=== PATIENT | male | born 1990 | race Caucasian/White ===

== ENCOUNTER 2016-11-02 19:50 | Inpatient (IN) | payer BC ==
--- NOTE | 2016-11-02 20:08 | Emergency Department Record ---
History of Present Illness - General Chief Complaint: Abdominal Pain Stated Complaint: VOMITING Time Seen by Provider: 11/02/16 20:06 Source: Patient Mode of Arrival: Ambulatory Limitations: No limitations - History of Present Illness Initial Comments: The patient is here due to a 7 day hx of intermittent abdominal pain. The pain is crampy and located in the lower abdomen. The pain is intermittent has has been present every other day since starting. When he does develop the pain there is a lot of nausea and vomiting but no diarrhea. There is no hx of similar issues and no hx of any abdominal surgeries. MD Complaint: Abdominal pain Onset/Timin -: Days(s) Location: LLQ, RLQ Severity: Moderate Quality: Aching Consistency: Intermittent Associated Symptoms: Nausea, Vomiting - Related Data Home Medications Medication Instructions Recorded Confirmed Last Taken No Home Med [NO HOME MEDS] 11/02/16 11/02/16 Unknown Allergies Allergy/AdvReac Type Severity Reaction Status Date / Time acetaminophen [From Vicodin] AdvReac VOMITING Verified 11/02/16 20:03 hydrocodone [From Vicodin] AdvReac VOMITING Verified 11/02/16 20:03 Review of Systems Constitutional: Denies: Chills, Fever Eyes: Denies: Eye discharge ENT: Denies: Congestion Respiratory: Denies: Cough, Dyspnea Past Medical History - SOCIAL HISTORY Smoking Status: Never smoker Alcohol Use: Rare Drug Use: Occasional Drug Use Detail:: Marijuana - RESPIRATORY Hx Respiratory Disorders: No - CARDIOVASCULAR Hx Cardio Disorders: No - NEURO Hx Neuro Disorders: No - GI Hx GI Disorders: No - Hx Genitourinary Disorders: No - ENDOCRINE Hx Endocrine Disorders: No - MUSCULOSKELETAL Hx Musculoskeletal Disorders: No - PSYCH Hx Psych Problems: No - HEMATOLOGY/ONCOLOGY Hx Hematology/Oncology Disorders: No Family Medical History Any Significant Family History?: No Physical Exam - General General Appearance: Alert, Oriented x3, Cooperative, No acute distress - Head Head exam: Atraumatic, Normocephalic, Normal inspection - Eye Eye exam: Normal appearance, PERRL - Neck Neck exam: Normal inspection, Full ROM. negative: Tenderness - Respiratory Respiratory exam: Normal lung sounds bilaterally. negative: Respiratory distress - Cardiovascular Cardiovascular Exam: Regular rate, Normal rhythm, Normal heart sounds - GI/Abdominal GI/Abdominal exam: Soft, Normal bowel sounds, Tenderness (There is very mild lower abdominal tenderness but the abdomen is very soft.). negative: Distended , Guarding, Rebound, Rigid - exam: Circumcision, Normal inspection. negative: Scrotal swelling, Testicular tenderness - Neurological Neurological exam: Alert, Normal gait. negative: Abnormal gait, Motor sensory deficit Course Vital Signs 11/02/16 20:04 Temperature 98.2 F Pulse Rate [ 69 Pulse Ox Probe] Respiratory 22 Rate Blood Pressure 100/53 [Left Arm] Pulse Ox 100 - Reevaluation(s) Reevaluation #1: The patient is doing better at this time. I did discuss the case with Katarina SORENSEN ) and she does accept the admission for Dr. Alfaro due to the Pancreatitis. 11/02/16 20:58 Reevaluation #2: The patient is doing very well at this time. He denies any pain presently and on exam his abdomen is very soft and nontender in all 4 quads. 11/02/16 22:11 Reevaluation #3: The patient is doing very well at this time. I did discuss the CT with him and again the need for admission. 11/02/16 22:54 Medical Decision Making - Data Complexity MDM Data: Labs Ordered and/or Reviewed, X-Ray Ordered and/or Reviewed - Lab Data Result diagrams: 11/02/16 20:22 11/02/16 20:22 - Radiology Data Radiology results: Report reviewed (Abd CT: 3 mm distal L ureter stone with mild [place]. ) Disposition Disposition: Admit Clinical Impression: Renal colic on left side Pancreatitis Qualifiers: Chronicity: acute Pancreatitis type: other Acute pancreatitis complication: unspecified Qualified Code(s): K85.80 - Other acute pancreatitis without necrosis or infection Disposition: Still a Patient at [facility] Decision to Admit: Admit from ER Decision to Admit Date: 11/02/16 Decision to Admit Time: 22:55 Accepting Physician: Angelina Time Discussed w/Accepting Physician: 22:55 Condition: (2) Stable Instructions: Abdominal Pain (ED) Forms: Patient Portal Access Time of Disposition: 22:55 Quality - Quality Measures Quality Measures: N/A - Blood Pressure Screening View Details: Yes Blood Pressure Classification: Normal BP Reading Systolic Measurement: 114 Diastolic Measurement: 63 Screening for High Blood Pressure: < Normal BP, F/U Not Required > [G8783] Normal BP Follow-up Interventions: No follow-up required
[2016-11-02] MEDS ORDERED: ONDANSETRON HCL IV 4 MG/2 ML VIAL IV ONE (20:11)
[2016-11-02] MEDS ORDERED: 0.9 % SODIUM CHLORIDE 1,000 ML BAG IV ONE (20:11)
[2016-11-02 20:29] LABS: BASO % 0.2 % (0-6); EOS % 0.8 % (0-6); GRAN % 67.1 % (47-80); HEMATOCRIT 44.1 % (42.0-52.0); HEMOGLOBIN 15.4 gm/dl (14.0-18.0); LYMPH % 24.1 % (16-45); MEAN CORPUSCULAR HEMOGLOBIN 30.4 pg (27-33); MEAN CORPUSCULAR HGB CONC 34.9 g/dl (32-36); MONO % 7.8 % (0-9); PLATELET COUNT 267 K/uL (130-400); RED BLOOD COUNT 5.07 M/uL (4.40-5.70); RED CELL DISTRIBUTION WIDTH 12.6 % (11.5-14.5); WHITE BLOOD COUNT W/O DIFF 13.2 K/uL (4.2-12.2)
[2016-11-02 20:39] LABS: ALBUMIN 4.7 gm/dL (3.5-5.0); ANION GAP 12.5 (7-16); BILIRUBIN,TOTAL 2.2 mg/dL (0.2-1.3); CARBON DIOXIDE 21.5 mmol/L (22-30); CREATININE 1.7 mg/dL (0.66-1.25); TOTAL PROTEIN 7.7 gm/dL (6.3-8.2)
[2016-11-02] MEDS ORDERED: HYDROMORPHONE HCL 1 MG/ML CPJ IVP ONE (20:41)
[2016-11-02] MEDS ORDERED: POTASSIUM CHLORIDE 20 MEQ TABLET PO ONE (20:41)
[2016-11-02] MEDS ORDERED: ONDANSETRON HCL IV 4 MG/2 ML VIAL IVP ONE (20:46)
[2016-11-02] MEDS ORDERED: 0.9 % SODIUM CHLORIDE 1000ML 1,000 ML IV ONE (20:49)
[2016-11-02 21:40] LABS: URINE APPEARANCE CLEAR; URINE BILIRUBIN NEGATIVE (NEGATIVE); URINE BLOOD NEGATIVE (NEGATIVE); URINE COLOR YELLOW; URINE GLUCOSE (UA) NEGATIVE (NEGATIVE); URINE KETONE 40 mg/dL (NEGATIVE); URINE LEUKOCYTE ESTERASE NEGATIVE (NEGATIVE); URINE NITRITE NEGATIVE (NEGATIVE); URINE PROTEIN NEGATIVE (NEGATIVE)
[2016-11-02] MEDS ORDERED: PROMETHAZINE HCL 25 MG/ML VIAL IVP ONE (21:55)
[2016-11-03] MEDS: 0.9 % SODIUM CHLORIDE 1000ML 1,000 ML IV PRN ×4 (01:29→23:00)
[2016-11-03 06:20] LABS: BASO % 0.3 % (0-6); EOS % 0.5 % (0-6); GRAN % 62.3 % (47-80); HEMATOCRIT 37.8 % (42.0-52.0); HEMOGLOBIN 12.7 gm/dl (14.0-18.0); LYMPH % 29.2 % (16-45); MEAN CELL VOLUME 90.4 fl (81-97); MEAN CORPUSCULAR HGB CONC 33.6 g/dl (32-36); MONO % 7.7 % (0-9); PLATELET COUNT 211 K/uL (130-400); RED BLOOD COUNT 4.18 M/uL (4.40-5.70); RED CELL DISTRIBUTION WIDTH 12.4 % (11.5-14.5); WHITE BLOOD COUNT W/O DIFF 7.4 K/uL (4.2-12.2)
[2016-11-03 06:23] LABS: MEAN CORPUSCULAR HEMOGLOBIN 30.3 pg (27-33)
[2016-11-03 06:30] LABS: ANION GAP 7.9 (7-16); BLOOD UREA NITROGEN 22 mg/dL (9-20); CARBON DIOXIDE 22.1 mmol/L (22-30); CREATININE 1.2 mg/dL (0.66-1.25); EST GLOMERULAR FILTRATION RATE > 60 ml/min; GLUCOSE,RANDOM 92 mg/dL (70-110); LIPASE 1075 U/L (23-300)
--- NOTE | 2016-11-03 08:16 | CT SCAN REPORT ---
EXAM: EMERGENCY CT OF THE ABDOMEN AND PELVIS WITHOUT CONTRAST HISTORY: VOMITING AND ABDOMINAL PAIN FOR FIVE DAYS. TECHNIQUE: Axial CT scan of the abdomen and pelvis was performed without oral or IV contrast at the referring physician's request. Comparison: None. FINDINGS: No calcified gallstones are seen within the gallbladder. No intrarenal calculi identified on either side. There is no hydronephrosis or hydroureter on the right with no right ureteral calculus or bladder calculus evident, however, there is mild hydronephrosis on the left and mild dilatation of the left ureter down to the bladder where it leads to a small calcification approximately 3 mm in size consistent with a distal left ureteral calculus at the left UVJ causing a component of obstruction on the left. Evaluation of the bowel and viscera is very limited without oral or IV contrast. Given this limitation, no definite hepatic, splenic, adrenal, pancreatic, or renal mass identified. I believe the appendix is visualized as a normal caliber structure with no appendicitis evident. Very minor linear fibrosis or discoid atelectasis at the right base. No free intraperitoneal air or free intraperitoneal fluid evident. There is deformity involving a few of the vertebral end plates including the inferior end plate of L1, superior end plate of L5, and superior end plate of S1 and to a less degree the inferior end plate of T11. These are probably all variable sized Schmorl's node type defects. IMPRESSION: 1. APPEARANCE CONSISTENT WITH AN APPROXIMATELY 3 MM DISTAL LEFT URETERAL CALCULUS AT THE LEFT UVJ CAUSING A COMPONENT OF OBSTRUCTION ON THE LEFT. 2. NO OTHER URINARY TRACT CALCULI IDENTIFIED. 3. APPEARANCE LIKELY REPRESENTING SCHMORL'S NODE DEFECTS IN SEVERAL OF THE VERTEBRAL END PLATES. 4. THE APPENDIX APPEARS NEGATIVE. NO FREE AIR OR FREE FLUID EVIDENT. JOB NUMBER: [id number] [facility]
[2016-11-03] MEDS: HYDROMORPHONE HCL 1 MG/ML CPJ IVP PRN ×3 (08:35→21:13)
--- NOTE | 2016-11-03 16:29 | History & Physical ---
History of Present Illness - Date of Service Date of Service for History & Physical: 11/03/16 - History of Present Illness Admitting Diagnosis: 1. Acute Pancreatitis. 2. Acute L distal Ureter stone. History of Present Illness: 26yo male with CC of nausea/vomiting and abdominal pain. He has no significant medical history Patient presented to the ED after 5 days of intermittent lower abdominal pain associated with vomiting. States he had been up in [place] the past week. Had been out on the boat in the sun and hadn't been drinking much water. He did admit to drinking a little more beer than usual while fishing. He decided to come in to the ED because he was unable to tolerate any liquids without vomiting and was having little urine output. While in the ED, patient Was noted to be afebrile with bp of 100/53. CBC showed slight WBC elevation at 13.2. CMP showed potassium of 3.1 and bicarb of 21.5. His BUN and CR were elevated at 28 and 1.7 respectively. Tbili was high at 2.20 and lipase was elevated as well at 1073. Patient underwent CT abdomen/pelvis revealing 3mm distal left ureteral stone at the left UVJ with some element of obstruction. No other acute abdominal pathology identified. Patient started on IVF rescuscitation and anti-emetics and admitted. 11/03/16- Patient states he is feeling much better today. States this is the best I've felt in 5 days. He has not had any further episodes of vomiting since getting the zofran. No BM today and had not been having diarrhea. He Has been tolerating clear liquids today without return of the nausea/vomiting. He is continuing to have intermittent sharp pain located about an inch below his umbilicus. States it seems to come and go randomly and when he has the pain is when he feels nauseated. He denies any epigastric pain, chest pain, blood in stool or vomit, no fevers. Denies history of pancreatitis or kidney stones. PCP: Garry Travel Screening - Travel/Exposure Within Last 30 Days Have you traveled within the last 30 days?: Yes Location Detail:: [place] - Travel/Exposure Within Last Year Have you traveled outside the [place] in the last year?: Yes Location Detail:: [place] - Additonal Travel Details Have you been exposed to anyone with a communicable illness?: No - Travel Symptoms Symptom Screening: None - Additional Travel Comment Additional Travel/Exposure Comment: Primitive camping trip. Eating wild caught fish Review of Systems Constitutional: Denies: Chills, Fever Eyes: Denies: Eye discharge ENT: Denies: Congestion Respiratory: Denies: Cough, Dyspnea Past Medical History - SOCIAL HISTORY Smoking Status: Never smoker - RESPIRATORY Hx Respiratory Disorders: No - CARDIOVASCULAR Hx Cardio Disorders: No - NEURO Hx Neuro Disorders: No - GI Hx GI Disorders: No Hx Abdominal Pain: No Hx Celiac Disease: No Hx Crohn's Disease: No Hx Diverticulitis: No Hx GI Bleed: No Hx Reflux: No Hx Hepatitis/Jaundice: No Hx Hiatal Hernia: No Hx Irritable Bowel: No Hx Liver Disease: No Hx Nausea/Vomiting: No Hx Obstructive Bowel: No Hx Pancreatitis: No Hx Rectal Bleeding: No Hx Ulcer: No Hx Wt Loss/Wt Gain: No - Hx Genitourinary Disorders: No Hx Bladder Problem: No Hx Dialysis: No Hx Kidney Stones: No Hx Prostate Problems: No Hx Renal Disease: No Hx UTI: No - ENDOCRINE Hx Endocrine Disorders: No - MUSCULOSKELETAL Hx Musculoskeletal Disorders: No Hx Arthritis: No Hx Back Injury: No Hx Fibromyalgia: No Hx Gout: No Hx Musculoskeletal Disease: No Hx Osteoporosis: No - PSYCH Hx Psych Problems: No Hx Anxiety: No Hx Behavior Problems: No Hx Depression: No Hx Emotional Abuse: No Hx Sexual Abuse: No Hx Suicide Attempt: No Major Depressive Episode: No Feelings of Hopelessness: No - HEMATOLOGY/ONCOLOGY Hx Hematology/Oncology Disorders: No Family Medical History Any Significant Family History?: No H&P Meds/Allergies - Allergies Allergies: Allergies Allergy/AdvReac Type Severity Reaction Status Date / Time acetaminophen [From Vicodin] AdvReac VOMITING Verified 11/02/16 20:03 hydrocodone [From Vicodin] AdvReac VOMITING Verified 11/02/16 20:03 - Home Medications Home Medications Medication Instructions Recorded Confirmed Last Taken No Home Med [NO HOME MEDS] 11/02/16 11/02/16 Unknown - Active Medications Active Medications: Current Medications Hydromorphone HCl (Dilaudid) 1 mg IVP Q4H PRN PRN Reason: Analgesia Last Admin: 11/03/16 16:09 Dose: 1 mg Sodium Chloride () 1,000 mls @ 150 mls/hr IV .Q6H40M PRN PRN Reason: LARGE VOLUME IV Last Admin: 11/03/16 16:19 Dose: 150 mls/hr Ondansetron HCl (Zofran) 4 mg IVP Q4H PRN PRN Reason: NAUSEA Physical Exam - Vital Signs Vital Signs: Vital Signs - Last 24 Hrs Temp Pulse Pulse Resp BP BP Pulse Ox 11/03/16 13:00 98.8 F 59 L 18 115/65 98 11/03/16 10:53 97.8 F 108/66 11/03/16 09:00 97.8 F 52 L 16 108/66 99 11/03/16 05:13 98.6 F 60 60 H 98/49 98 11/03/16 00:07 99.4 F 77 18 115/67 97 11/02/16 23:34 60 16 11/02/16 23:13 99.0 F 60 24 122/45 98 11/02/16 23:05 98.9 F 59 L 18 118/67 98 - General General Appearance: Alert, Oriented x3, Cooperative, No acute distress Limitations: No limitations - Head Head exam: Atraumatic, Normocephalic, Normal inspection - Eye Eye exam: Normal appearance, PERRL - ENT ENT exam: Mucous membranes dry Ear exam: Normal external inspection. negative: External canal tenderness Nasal Exam: Normal inspection. negative: Discharge, Sinus tenderness Mouth exam: Normal external inspection, Tongue normal Teeth exam: Normal inspection. negative: Dental caries Throat exam: Normal inspection. negative: Tonsillar erythema, Tonsillar exudate - Neck Neck exam: Normal inspection, Full ROM. negative: Tenderness - Respiratory Respiratory exam: Normal lung sounds bilaterally. negative: Respiratory distress - Cardiovascular Cardiovascular Exam: Regular rate, Normal rhythm, Normal heart sounds - GI/Abdominal GI/Abdominal exam: Soft, Normal bowel sounds, Tenderness (There is very mild lower abdominal tenderness but the abdomen is very soft.). negative: Distended , Guarding, Rebound, Rigid - exam: Circumcision, Normal inspection. negative: Scrotal swelling, Testicular tenderness - Neurological Neurological exam: Alert, Normal gait. negative: Abnormal gait, Motor sensory deficit Results - Labs Result Diagrams: 11/03/16 06:10 11/04/16 06:05 Labs Last 24 Hours: Laboratory Results - last 24 hr 11/03/16 11/03/16 06:10 06:10 WBC 7.4 RBC 4.18 L Hgb 12.7 L Hct 37.8 L MCV 90.4 MCH 30.3 MCHC 33.6 RDW 12.4 Plt Count 211 MPV 11.0 H Gran % 62.3 Lymphocytes % 29.2 Monocytes % 7.7 Eosinophils % 0.5 Basophils % 0.3 Sodium 139 Potassium 4.1 Chloride 109 H Carbon Dioxide 22.1 Anion Gap 7.9 BUN 22 H Creatinine 1.2 Estimated GFR > 60 Random Glucose 92 Calcium 8.3 L Lipase 1075 H - Imaging and Cardiology CT scan - abdomen Status: Report reviewed VTE H&P Assessment - Risk for VTE Risk for VTE: Yes Risk Level: Low Risk Assessment Date: 11/03/16 Risk Assessment Time: 11:00 VTE Orders Placed or Will Be Placed: Yes Plan - Inpatient Certification Inpatient Certification: Admit to inpatient care: Based on my medical assessment, after consideration of patient's risk factors (age, co-morbidities and patient presenting symptoms and acuity), I expect that this patient will remain in the hospital greater than or equal to two midnights and that the services needed warrant inpatient care because: Patient Risk Factors: [pancreatitis, nephrolithiasis, intractable pain and vomiting, dehydration] Estimated length of stay: [48-72H] The patient may reasonably be expected to be discharged or transferred to a hospital within 96 hours after admission to [facility]. Services needed: [IVF, urology consult] Post hospital care (if known): [] I certify that my determination is in accordance with my understanding of Medicare requirements for reasonable and necessary inpatient services. 11/04/16 15:05 - Detailed Diagnosis and Plan (1) Nausea & vomiting Current Visit: Yes Status: Acute Qualifiers: Vomiting type: unspecified Base Code: R11.2 - NAUSEA WITH VOMITING, UNSPECIFIED Comment: 11/03/16- improved following zofran. Patient currently tolerating clear liquids. questionable etiology. pancreatitis vs renal colic vs other? -continue IVF rescuscitation with NS at 150cc/hr -continue to advance diet as tolerating -continue zofran 4mg IV q4H prn nausea -vitals q8H -repeat labs qam (2) Nephrolithiasis Current Visit: Yes Status: Acute Base Code: N20.0 - CALCULUS OF KIDNEY Comment: 11/03/16- CT abdomen/pelvis showed 3mm distal left ureteral stone at the left UVJ causing obstruction. UA negative for infection or blood. patient's symptoms seem to correlate with renal colic and have been ongoing for at least 6 days now. -will continue IVF with NS at 150cc/hr -strain urine -pain control wtih diluadid -add flomax 0.4mg po daily -consult urology (3) Pancreatitis Current Visit: Yes Status: Acute Qualifiers: Chronicity: acute Pancreatitis type: other Acute pancreatitis complication: unspecified Qualified Code(s): K85.80 - Other acute pancreatitis without necrosis or infection Base Code: K85.90 - ACUTE PANCREATITIS WITHOUT NECROSIS OR INFECTION, UNSP Comment: 11/03/16- lipase of [address] in the ED[address] Ct abdomen did not show any evidence of pancreatitis but patient has been having frequent vomiting for the past few days and inability to tolerate food/liquids. He denies any epigastric pain currently. -will continue clear liquids and IVF with NS -trend lipase (4) DVT prophylaxis Current Visit: Yes Status: Acute Base Code: CSA0385 - Comment: 11/03/16- patient is low risk with age -will encourage ambulation -will add lovenox 40mg sq daily (5) Full code status Current Visit: Yes Status: Acute Base Code: Z78.9 - OTHER SPECIFIED HEALTH STATUS Comment: 11/03/16- patient is full code
[2016-11-03] MEDS: ONDANSETRON HCL IV 4 MG/2 ML VIAL IVP PRN ×2 (18:02→21:13)
[2016-11-03] MEDS: TAMSULOSIN HCL 0.4 MG CAP.ER.24H PO SCH (18:10)
[2016-11-04] MEDS ORDERED: IBUPROFEN 400 MG TABLET PO PRN (01:15)
[2016-11-04] MEDS: 0.9 % SODIUM CHLORIDE 1000ML 1,000 ML IV PRN ×2 (05:39→14:07)
[2016-11-04 06:26] LABS: ALB/GLOB RATIO 1.3 (1.1-1.8); ALBUMIN 3.3 gm/dL (3.5-5.0); ALKALINE PHOSPHATASE 40 U/L (38-126); ALT/SGPT 28 U/L (21-72); ANION GAP 6.6 (7-16); AST/SGOT 17 U/L (17-59); BILIRUBIN,TOTAL 1.87 mg/dL (0.2-1.3); BLOOD UREA NITROGEN 11 mg/dL (9-20); CARBON DIOXIDE 27.4 mmol/L (22-30); EST GLOMERULAR FILTRATION RATE > 60 ml/min; GLUCOSE,RANDOM 81 mg/dL (70-110); LIPASE 566 U/L (23-300); TOTAL PROTEIN 5.8 gm/dL (6.3-8.2); TRIGLYCERIDES 78 mg/dL (30-200)
[2016-11-04] MEDS: TAMSULOSIN HCL 0.4 MG CAP.ER.24H PO SCH (09:30)
--- NOTE | 2016-11-04 18:18 | Discharge Note ---
VTE H&P Assessment - Risk for VTE Risk for VTE: Yes Risk Level: Low Risk Assessment Date: 11/03/16 Risk Assessment Time: 11:00 VTE Orders Placed or Will Be Placed: Yes Discharge Medications - Discharge Medications Prescriptions: Ibuprofen [Motrin] 800 mg PO Q8H PRN #30 PRN Reason: Pain - Moderate (5-7) Tramadol HCl [Ultram] 50 mg PO Q8H #14 tab Home Medications: Ambulatory Orders Ibuprofen [Motrin] 800 mg PO Q8H PRN #30 11/04/16 [Last Taken Unknown] Tramadol HCl [Ultram] 50 mg PO Q8H #14 tab 11/04/16 [Last Taken Unknown] Discharge Note - Date Date of Discharge Note: 11/04/16 Disposition: Home, Self-Care Condition: (2) Stable Instructions: Abdominal Pain (ED), Pancreatitis (DC), Kidney Stones (DC) Additional Instructions: follow up with Dr. Castañeda in one week No alcohol for 2 months strain urine follow up with Dr. Pack as needed for kidney stone return to hospital if fever, severe abd pain or vomiting Forms: Patient Portal Access Activity at Discharge: Increase Activity as Tolerated Diet at Discharge: Regular Diet
[2016-11-05] MEDS ORDERED: ENOXAPARIN 40 MG/0.4 ML SYR SQ SCH (10:00)
--- NOTE | 2016-11-05 15:10 | Medical Records Consult ---
DATE OF CONSULTATION: 11/04/2016 REASON FOR CONSULTATION: Ureteral calculus. CASE SUMMARY: Thank you Dr. Recio for asking me to see this patient in consultation today. As you know, he had a 7-day history of intermittent abdominal pain which he describes as a colicky and crampy and periumbilical in location. He has also had quite a bit of nausea and vomiting. He has never had a urinary calculus before. No prior urological history or surgeries. CT scan showed a 3 mm distal left ureteral stone. Currently he is feeling much better. His pain has been resolved for the last at least 12 hours. He has not required any pain medication at all today and has been keeping liquids down. PAST MEDICAL HISTORY: Reviewed and there is no other pertinent history. PAST SURGICAL HISTORY: Negative. MEDICATIONS: Reviewed. He takes no home medications. ALLERGIES: VICODIN, which causes vomiting. SOCIAL HISTORY: Significant for occasional marijuana use, otherwise negative. FAMILY HISTORY: Negative for urological problems or stone disease. REVIEW OF SYSTEMS: Ten plus per the chart. PHYSICAL EXAMINATION: GENERAL: Currently the patient is awake, alert. Appears in no distress. VITAL SIGNS: Temperature 98.2, heart rate 69, blood pressure 100/53. NECK: No masses or tenderness. CHEST: Normal expansion without wheezing. ABDOMEN: Soft, nontender, nondistended. There is no costovertebral angle tenderness as well. NEUROLOGIC: No focal deficit. LABORATORY DATA: Reviewed. White count is 7.4, down from 13 at the time of admission. Hemoglobin 12.7, platelets 211,000. Urinalysis was normal. BUN 22, creatinine 1.2, potassium 4.1. His total bilirubin is slightly elevated at 2.2 and his lipase was elevated at 1075. CT scan was reviewed personally showing a 3 mm calcification at the left ureterovesical junction with [id number] left hydroureter and hydronephrosis. There is no other stone noted. The pancreas appears unremarkable on unenhanced CT scan. FINAL IMPRESSION: 1. Acute left ureterolithiasis with 3 mm left ureterovesical junction calculus and obstruction. 2. Apparent acute pancreatitis. PLAN: The patient states that his pain again is completely resolved. He has been tolerating liquids without difficulty. He has not required any pain medication all day today. My overall impression is that he has passed the stone and that he can be given a trial of regular diet if cleared by Dr. Recio. He can be discharged home later today once he tolerates that. I gave him my office information if the pain returns so that we could engage in further investigation and treatment is needed. We discussed stone diet recommendations as well. The patient agrees with the plan, feels that he is well enough to be discharged and will follow up as needed in the office. Thank you again for the opportunity to see this very pleasant patient. Please let me know if I can be of further assistance. CC: Dr. Almita PUGH
--- NOTE | 2016-11-05 21:32 | Discharge Summary ---
DATE OF DISCHARGE: 11/04/16 DISCHARGE DIAGNOSES: 1. ACUTE PANCREATITIS. 2. ABDOMINAL PAIN, RESOLVED. 3. LEFT URETERAL STONE, 3 MM, UROLOGY CONSULTED, DR. BUSTAMANTE AND THE STONE HAS PROBABLY PASSED AT THIS TIME. ATTENDING PHYSICIAN: NGA WARE D.O. REASON FOR HOSPITALIZATION: ABDOMINAL PAIN, VOMITING: This 26-year-old male presented to the Emergency Department with a 7-day history of intermittent abdominal pain. The pain was crampy and located in the lower abdomen and right around the periumbilical area. The [place] was [place], he was fishing in [place]. He flew into a camp site, where he stayed approximately 10 days. [place] came to the Emergency Department for evaluation. He had no diarrhea. No history of similar episodes and no history of abdominal surgery. He was diagnosed with renal colic on the left side and acute pancreatitis. His lipase was 1000. He had a 3 mm stone in the left ureter and he was admitted for IV fluids and further care and consult with Dr. Bustamante, the Urologist. SIGNIFICANT FINDINGS FROM EXAMINATION: The CAT scan showed an appearance with approximately a 3 mm distal left ureteral calculus at the left UV junction causing a component of obstruction on the left. No other urinary tract calculi identified. He also had some Schmorls nodes in several vertebral endplates. The appendix was normal. No free air or free fluid evident. In his laboratory evaluation, the WBC was 13,200, hemoglobin was 15.4, and his potassium was 3.1. In the first day of the E.R, it normalized to 4.1. His BUN on discharge was 11, creatinine was 1.0. He was more dehydrated when he came in; his BUN was 28 and creatinine was 1.7. His total bilirubin was 2.2, which is high and his lipase was 1,073. It dropped down to 566 on the day of discharge. Urine showing basically negative urine. No signs of infection. THERAPY PROVIDED: The patient was given IV fluids as bolus in the Emergency Department at 150 mL an hour. Pain control. NPO. Consult with Dr. Bustamante. He felt the kidney stone most likely passed. He is pain free at the time of evaluation and at the time of discharge and he is eating nicely. CONDITION AT DISCHARGE: Much improved. DISCHARGE INSTRUCTIONS: 1. Follow-up with Dr. Foster, his family doctor in one week. 2. Strain his urine in case the stone comes through and give it to the family doctor or, if he is having troubles with more left-sided flank pain or abdominal pain, contact Urology and they would have to relook at the kidney stone situation. 3. He is also to not drink alcohol. He was drinking more alcohol on his [place] fishing trip but not excessive. He said he had maybe 13 or 14 beers over a period of 7 to 10 days and I recommend that he not drink alcohol for at least two months and let the pancreas settle down. 4. Well give him a prescription of Motrin and Ultram for pain. He is allergic to Vicodin, causing nausea and vomiting. 5. Diet is back to a regular diet. JOB NUMBER: [id number] MTDD
== END 2016-11-04 18:55 | disposition home or self-care (01) | DRG 439 ==
LOC: ER 19:50 → MEDSURG 22:57 → OBSVTOIN 22:57
PROVIDERS: ADMIT Family Medicine; ATTEND Family Medicine
DX: K85.90 Acute pancreatitis without necrosis or infection, unspecified (principal); N13.2 Hydronephrosis with renal and ureteral calculous obstruction; E86.0 Dehydration; Z78.9 Other specified health status
CPT/HCPCS: 74176; 80048; 80053; 80076; 81003; 83690; 84478; 85025; 86140; 96361; 96375; 96376; 99223; 99239; 99285; J1170; J2405; J2550; J7030